=== PATIENT | female | born 1985 | race Asian ===

== ENCOUNTER 2016-08-02 05:09 | Inpatient (IN) | payer OTHER ==
[~2016-08-02] VITALS: Ht 154.9 cm; Wt 72.7 kg
[2016-08-02] VITALS (9 sets, daily range): BP systolic 90–116; BP diastolic 46–65
[~2016-08-02 05:09] MED LIST: ATHENOL325 MG PO; Motrin PO; PHENERGAN-CODE120 ML PO; PREFERA-OB P1 TABLET PO; Percocet 5/325,Endoc PO
[2016-08-02 06:14] LABS: EOSINOPHIL COUNT 0.4 K/uL (0-0.3); HEMATOCRIT 41.5 % (36.0-46.0); IMMATURE GRANULOCYTE COUNT 0.1 K/uL; LYMPHOCYTE COUNT 1.8 K/uL (1.0-2.8); MCH 28.8 PG (29.0-34.0); MCHC 32.3 G/DL (30.0-36.0); MCV 89.2 FL (83-99); MEAN PLAT.VOLUME 10.4 uM^3 (9.5-12.4); MONOCYTE (%) 8.4 % (3-12); NEUTROPHIL (%) 73.1 % (45-76); PLATELET COUNT 223 K/uL (156-360); RBC DIS.WIDTH-CV 13.2 % (11.8-14.6); RBC DIS.WIDTH-SD 43.1 % (39-53); RED BLOOD COUNT 4.65 M/uL (3.80-5.20); WHITE BLOOD COUNT 12.3 K/uL (4.1-10.2)
[2016-08-03 03:24] VITALS: BP 98/57
[2016-08-03 07:29] LABS: EOSINOPHIL (%) 0.8 % (0-5); EOSINOPHIL COUNT 0.1 K/uL (0-0.3); HEMATOCRIT 28.3 % (36.0-46.0); IMMATURE GRANULOCYTE (%) 0.6 % (0.0-0.7); IMMATURE GRANULOCYTE COUNT 0.1 K/uL; INSTRUMENT ABS NEUTROPHIL CT 12.6 K/uL; LYMPHOCYTE COUNT 1.3 K/uL (1.0-2.8); MCH 29.8 PG (29.0-34.0); MCHC 33.2 G/DL (30.0-36.0); MCV 89.8 FL (83-99); MEAN PLAT.VOLUME 10.1 uM^3 (9.5-12.4); MONOCYTE (%) 7.4 % (3-12); MONOCYTE COUNT 1.1 K/uL (0-0.8); NEUTROPHIL (%) 82.4 % (45-76); NEUTROPHIL COUNT 12.6 K/uL (1.8-6.4); PLATELET COUNT 160 K/uL (156-360); RBC DIS.WIDTH-CV 13.4 % (11.8-14.6); RBC DIS.WIDTH-SD 43.9 % (39-53); WHITE BLOOD COUNT 15.3 K/uL (4.1-10.2)
[2016-08-03 07:40] LABS: RED BLOOD COUNT 3.15 M/uL (3.80-5.20)
[2016-08-03 07:47] VITALS: BP 114/55
[2016-08-03 11:09] VITALS: BP 112/68
[2016-08-03 15:44] VITALS: BP 110/51
[2016-08-03 19:41] VITALS: BP 99/54
[2016-08-03 23:01] VITALS: BP 120/60
[2016-08-04 03:14] VITALS: BP 100/51
[2016-08-04 07:11] VITALS: BP 99/54
[2016-08-04 15:16] VITALS: BP 98/56
[2016-08-04 23:00] VITALS: BP 111/60
[2016-08-05 07:29] VITALS: BP 133/67
[2016-08-05 14:33] VITALS: BP 109/56
[2016-08-05 23:00] VITALS: BP 117/58
[2016-08-06] MEDS ORDERED: ENDOCET 5-3251 EACH PO (09:49)
[2016-08-06] MEDS ORDERED: CHROMAGEN,1 CAPSULE PO (09:49)
[2016-08-06] MEDS ORDERED: IBUPROFEN800 MG PO (09:49)
[2016-08-06 14:22] VITALS: BP 107/77
== END 2016-08-06 18:55 | disposition home or self-care (01) | DRG 765 ==
LOC: 2WEST 05:09 → 2SOUTH 11:26 → 2WEST 17:57
PROVIDERS: Obstetrics & Gynecology; Obstetrics & Gynecology Obstetrics
PROC: 10D00Z1 Extraction of Products of Conception, Low, Open Approach (ICD-10-PCS; principal; 2016-08-02)
DX: O26.893 Other specified pregnancy related conditions, third trimester (principal); D62 Acute posthemorrhagic anemia; N85.6 Intrauterine synechiae; O99.285 Endocrine, nutritional and metabolic diseases complicating the puerperium; O34.211 Maternal care for low transverse scar from previous cesarean delivery; Z37.0 Single live birth; Z3A.39 39 weeks gestation of pregnancy; I87.8 Other specified disorders of veins; O99.02 Anemia complicating childbirth; E78.00 Pure hypercholesterolemia, unspecified; B97.7 Papillomavirus as the cause of diseases classified elsewhere
CPT/HCPCS: 85025; 86900; 86901; J0690; J1200; J1885; J2274; J2405; J2590; J3010; J7050; J7120